=== PATIENT | male | born 1960 | race Caucasian/White ===

== ENCOUNTER → 2018-04-05 | Outpatient (CLI) | payer BC ==
[~2018-04-05] MED LIST: IODIXANOL LOCM 50 ML BTL; LIDOCAINE 1% (MDV) 10 ML INJ
== END | disposition home or self-care (01) ==
LOC: C/S 08:00
DX: M75.101 Unspecified rotator cuff tear or rupture of right shoulder, not specified as traumatic (principal)
CPT/HCPCS: 73040; 73200

== ENCOUNTER 2018-06-07 10:26 | Day surgery (SDC) | payer BC ==
[~2018-06-07 10:26] MED LIST changes: -IODIXANOL LOCM 50 ML BTL; +LACTATED RINGER'S 1,000 ML IV*; -LIDOCAINE 1% (MDV) 10 ML INJ; +SUCCINYLCHOLINE CHLORIDE 100 MG/5 ML SYG IV
[2018-06-07] MEDS ORDERED: MIDAZOLAM 1 MG/ML 2 ML INJ (11:46)
[2018-06-07] MEDS ORDERED: ROCURONIUM 50 MG INJ (11:46)
[2018-06-07] MEDS ORDERED: GLYCOPYRROLATE 0.4 MG INJ (11:46)
[2018-06-07] MEDS ORDERED: FENTAnyl 50 MCG/ML VIAL (11:46)
[2018-06-07] MEDS ORDERED: ONDANSETRON 4 MG INJ (11:46)
[2018-06-07] MEDS ORDERED: CEFAZOLIN 1 GM INJ (11:46)
[2018-06-07] MEDS ORDERED: DEXAMETHASONE 4 MG/ML 1 ML INJ (11:46)
[2018-06-07] MEDS ORDERED: NEOSTIGMINE 3 MG/3 ML SYRINGE (11:46)
[2018-06-07] MEDS ORDERED: PROPOFOL 20 ML (11:46)
[2018-06-07] MEDS ORDERED: ROPIVACAINE 0.5 % 30 ML VIAL (11:47)
[2018-06-07] MEDS: VANCOMYCIN 1 GM (PMX) 250 ML IVPB (12:16)
[2018-06-07] MEDS: DEXAMETHASONE 2 MG TAB PO (12:16)
[2018-06-07] MEDS: traMADol 50 MG TAB PO (12:16)
[2018-06-07] MEDS: TRANEXAMIC ACID 1,000 MG in DEXTROSE 5% 100 ML IVPB (14:03)
[2018-06-07] MEDS ORDERED: hydrALAzine 20 MG INJ (14:39)
[2018-06-07] MEDS ORDERED: SUGAMMADEX SODIUM 200 MG/2 ML VIAL IV (14:55)
[2018-06-07] MEDS ORDERED: ALBUTEROL 0.083% (NEB) 2.5 MG/3 ML AMP (15:29)
[2018-06-07] MEDS: ALBUTEROL 0.083% (NEB) 2.5 MG/3 ML AMP HHN (15:44)
[2018-06-07] MEDS ORDERED: EPHEDrine SULFATE 50 MG/5 ML SYG IV (16:00)
[2018-06-07] MEDS ORDERED: FENTAnyl 50 MCG/ML VIAL IV ×3 (16:00)
[2018-06-07] MEDS ORDERED: OXYCODONE/ACETAMINOPHEN (5/325) TAB PO ×4 (16:00)
[2018-06-07] MEDS ORDERED: MEPERIDINE 25 MG INJ IV (16:00)
[2018-06-07] MEDS ORDERED: LABETALOL HCL 20MG INJ IV (16:00)
[2018-06-07] MEDS ORDERED: IPRATROPIUM (NEB) 0.5 MG/2.5 ML AMP HHN (16:00)
[2018-06-07] MEDS ORDERED: hydrALAzine 20 MG INJ IV (16:00)
[2018-06-07] MEDS ORDERED: ONDANSETRON 4 MG INJ IV ×2 (16:00)
[2018-06-07] MEDS ORDERED: ALBUTEROL 0.083% (NEB) 2.5 MG/3 ML AMP HHN (16:00)
[2018-06-07] MEDS ORDERED: MIDAZOLAM 1 MG/ML 2 ML INJ IV (16:00)
[2018-06-07] MEDS ORDERED: HYDROmorphONE 1 MG/5 ML IV SYRINGE IV ×6 (16:00)
[2018-06-07] MEDS ORDERED: TRIMETHOBENZAMIDE 100 MG/ML VIAL IM (16:00)
[2018-06-07] MEDS: LABETALOL HCL 20MG INJ IV (16:18)
[2018-06-07] MEDS: DIPHENHYDRAMINE 50 MG INJ IV (16:49)
[2018-06-07] MEDS: hydrALAzine 20 MG INJ IV ×2 (16:52→17:07)
== END 2018-06-07 17:51 | disposition home or self-care (01) ==
LOC: SDS 10:26
DX: S43.491A Other sprain of right shoulder joint, initial encounter (principal); S46.211A Strain of muscle, fascia and tendon of other parts of biceps, right arm, initial encounter; M19.011 Primary osteoarthritis, right shoulder; X58.XXXA Exposure to other specified factors, initial encounter
CPT/HCPCS: 29823; 71045; 94664